=== PATIENT | female | born 1960 | race Caucasian/White ===

== ENCOUNTER 2017-07-07 14:05 | Emergency (ER) | payer BC ==
[~2017-07-07] VITALS: Ht 172.7 cm; Wt 85.8 kg
[2017-07-07 14:13] VITALS: TEMP 36.4; Ht 172.7 cm; Wt 85.8 kg
[2017-07-07] MEDS ORDERED: SODIUM CHLORIDE 0.9% 1000ML 1,000 ML IV STA (14:44)
[2017-07-07] MEDS ORDERED: ONDANSETRON INJ 2 MG/ML 2 ML VIAL IV STA (14:44)
--- NOTE | 2017-07-07 14:47 | EMERGENCY ROOM VISIT NOTE ---
History Report prepared by Anthony: Xavier Lynch Under the Supervision of: Dr. Jag Aparicio M.D. First contact with patient: 14:32 Chief Complaint: ABDOMINAL PAIN Stated Complaint: SEVERE STOMACH PAIN, CHILLS, FLU LIKE VOMIT History of Present Illness The patient is a 57 year old white female with a past medical history of HTN and tubal ligation who presents to the ED with a cc of intermittent abdominal pain beginning this morning. She rates her discomfort as an 8/10 in severity. She describes her current pain as an ache. The patient states that her abdominal pain began in the upper portion of her abdomen on her way to work this morning. She reports that throughout the day her pain became intermittent and worsened. The patient states that her pain has been moving locations during each episode. The patient states that she took Imodium and Tylenol without any relief of symptoms. Positive nausea, chills, contact with someone with cold symptoms. Negative diarrhea, blood in stool, recent travel, recent antibiotic use. Source of History: patient Onset: this morning Position: abdomen Symptom Intensity: 8/10 Quality: ache Timing: intermittent Modifying Factors (Relieving): tylenol, other (Imodium) Associated Symptoms: + chills, + nausea, No melena, No hematochezia, No diarrhea Note: Positive contact with someone with cold symptoms. Negative recent travel, recent antibiotic use. Review of Systems See HPI for pertinent positives and negatives. A total of ten systems were reviewed and were otherwise negative. Past Medical & Surgical Medical Problems: (1) HTN (hypertension) Surgical Problems: (1) H/O tubal ligation (2) Hx of tonsillectomy Family History Diabetes mellitus Heart disease Hypertension Social History Smoking Status: Current Every Day Smoker Alcohol Use: none Drug Use: none Marital Status: Housing Status: lives with significant other Occupation Status: employed Current/Historical Medications Scheduled Dicyclomine Hcl (Bentyl), 10 MG PO TID [Blood Pressure], 1 TAB PO DAILY Scheduled PRN Ondansetron Hcl (Zofran), 4 MG PO Q8H PRN for Nausea Allergies Coded Allergies: Penicillins (Verified Allergy, Unknown, ., 07/07/17) Sulfa Antibiotics (Verified Allergy, Unknown, ., 07/07/17) Physical Exam Vital Signs Date Time Temp Pulse Resp B/P (MAP) Pulse Ox O2 Delivery O2 Flow Rate FiO2 07/07/17 17:53 75 16 139/90 98 07/07/17 16:49 75 16 121/75 98 Room Air 07/07/17 15:46 78 16 119/70 95 Room Air 07/07/17 15:27 84 07/07/17 14:13 36.4 87 18 134/82 99 Room Air Physical Exam GENERAL: Awake, alert, well-appearing, NAD HENT: Normocephalic, atraumatic. EYES: Normal conjunctiva. Sclera non-icteric. NECK: Supple. No nuchal rigidity. FROM. RESPIRATORY: CTAB, no rhonchi, wheezing, crackles CARDIAC: RRR, no MRG ABDOMEN: Soft, NTND, BS+, no suprapubic tenderness, negative psoas, negative obturator's. MSK: No chest wall TTP, no LE edema, no CVA TTP. NEURO: GCS 15, CN 2-12 intact, moves all 4s on command SKIN: No rash or jaundice noted. Medical Decision & Procedures ER Provider Diagnostic Interpretation: X-ray: Per my interpretation, radiologist review. ABDOMEN 2VIEW W/PA CHEST RTN CLINICAL HISTORY: Severe abdominal pain, chills, vomiting. COMPARISON STUDY: No previous studies for comparison. FINDINGS: Erect chest reveals no free intraperitoneal air. There is no focal pelvic consolidation. Erect and supine views the abdomen reveal no abnormally dilated loops of large or small bowel. There are no transition zones to indicate bowel obstruction. IMPRESSION: No evidence of bowel obstruction. No evidence of free air. Electronically signed by: Abram Sun M.D. 07/07/2017 3:54 PM Dictated Date/Time: 07/07/2017 3:54 PM ABDOMEN AND PELVIS CT WITH IV CONTRAST CT DOSE: 467.69 mGy.cm HISTORY: intermittent spasmodic severe abdominal pain, elevated WBC TECHNIQUE: Multiaxial CT images of the abdomen and pelvis were performed following the use of intravenous contrast. A dose lowering technique was utilized adhering to the principles of ALARA. COMPARISON STUDY: Chest and abdominal series 07/07/2017. FINDINGS: A few linear scarlike densities within the right middle lobe and lingula. A 6 mm nodule within the right lower lobe on image 20. No pneumoperitoneum. No pneumatosis. No fractures within the visualized osseous structures. There are probably 5 scattered hypodense lesions within the liver with the largest measuring 5 mm. These are technically too small to characterize but statistically represent cysts. The gallbladder, spleen, adrenal glands, and pancreas are unremarkable. Mild to moderate calcified plaque within the normal caliber abdominal aorta and common iliac arteries. There are few scattered bilateral renal hypodense lesions. The majorities are subcentimeter in size and too small to characterize. Dominant lesion within the upper pole of the left kidney measures 8.7 cm and is consistent with a cyst. There is also a septated 5.4 cm cyst within the upper pole the right kidney. This contains a few small peripheral calcifications. No hydronephrosis. The bladder is unremarkable. The uterus and bilateral adnexa are within normal limits. No pelvic free fluid. No retroperitoneal lymphadenopathy. Colonic diverticulosis. No bowel wall thickening or obstruction. Normal appendix. Nondistended fluid-filled loops of small bowel are seen within the abdomen. IMPRESSION: 1. No bowel wall thickening or obstruction. 2. Normal appendix. 3. Colonic diverticulosis. 4. Nondilated fluid-filled loops of small bowel seen throughout the abdomen. This is likely within the range of normal limits. A low-grade gastroenteritis could also have a similar appearance in the appropriate clinical setting. 5. A 6 mm indeterminate pulmonary nodule within the right lower lobe. Please refer to the chart below for recommended follow-up. 6. Additional findings as described above. Please refer to below summary of Fleischner criteria recommendations for follow-up of incidental CT nodules (Christine Iglesias, Guidelines for management of small pulmonary nodules detected on CT scans: A statement from the Fleischner Society, Radiology 237: [phone].) SOLID NODULES Solitary nodule size: <6 mm * Low risk patients: no follow-up needed * high risk patients: optional CT at 12 months Solitary nodule size: 6-8 mm * Low risk patients: follow-up at 6-12 months, then consider further follow-up at 18-24 months * high risk patients: initial follow-up CT at 6-12 months and then at 18-24 months if no change Solitary nodule size: >8 mm * either low or high risk patients - consider follow-up CT at 3 months, and/or CT-PET, and/or biopsy Multiple nodules size: <6 mm * Low risk patients: no routine follow-up * high risk patients: optional CT at 12 months Multiple nodules size: 6-8 mm * Low risk patients: follow-up at 3-6 months, then consider further follow-up at 18-24 months * high risk patients: follow-up at 3-6 months, then at 18-24 months if no change Multiple nodules size: >8 mm * Low risk patients: follow-up at 3-6 months, then consider further follow-up at 18-24 months * high risk patients: follow-up at 3-6 months, then at 18-24 months if no change Note: newly detected indeterminate nodule in persons 35 years of age or older. * Low risk patients: minimal or absent history of smoking and/or other known risk factors * high risk patients: history of smoking or of other known risk factors (e.g. first degree relative with lung cancer, or exposure to asbestos, radon, uranium) * if a nodule up to 8 mm is partly solid or is ground glass further follow-up is required after 24 months to exclude possible slow growing adenocarcinoma (ANNIKA) SUBSOLID NODULES Solitary pure ground-glass nodule * nodule size <6 mm - no CT follow-up required * nodule size >=6 mm - follow-up CT at 6-12 months, then every 2 years until 5 years Solitary part-solid nodule * nodule size <6 mm - no CT follow-up required * nodule size >=6 mm - follow-up CT at 3-6 months. If unchanged, and solid component remains <6 mm, then annual follow-up for 5 years Multiple subsolid nodules * nodule size <6 mm - follow-up CT at 3-6 months, consider further follow-up at 2 and 4 years if stable * nodule size >=6 mm - follow-up CT at 3-6 months, subsequent management based on the most suspicious nodule(s) Electronically signed by: Javier Soria M.D. 07/07/2017 5:06 PM Dictated Date/Time: 07/07/2017 4:51 PM Laboratory Results 07/07/17 15:10 Red Blood Count 4.85, Mean Corpuscular Volume 92.2, Mean Corpuscular Hemoglobin 32.2, Mean Corpuscular Hemoglobin Concent 34.9, Mean Platelet Volume 9.7, Neutrophils (%) (Auto) 92.7, Lymphocytes (%) (Auto) 2.8, Monocytes (%) (Auto) 4.1, Eosinophils (%) (Auto) 0.1, Basophils (%) (Auto) 0.1, Neutrophils # (Auto) 16.15, Lymphocytes # (Auto) 0.49, Monocytes # (Auto) 0.71, Eosinophils # (Auto) 0.01, Basophils # (Auto) 0.02 07/07/17 15:10 Test 07/07/17 15:10 White Blood Count 17.42 K/uL (4.8-10.8) Red Blood Count 4.85 M/uL (4.2-5.4) Hemoglobin 15.6 g/dL (12.0-16.0) Hematocrit 44.7 % (37-47) Mean Corpuscular Volume 92.2 fL (80-100) Mean Corpuscular Hemoglobin 32.2 pg (25-34) Mean Corpuscular Hemoglobin Concent 34.9 g/dl (32-36) Platelet Count 337 K/uL (130-400) Mean Platelet Volume 9.7 fL (7.4-10.4) Neutrophils (%) (Auto) 92.7 % Lymphocytes (%) (Auto) 2.8 % Monocytes (%) (Auto) 4.1 % Eosinophils (%) (Auto) 0.1 % Basophils (%) (Auto) 0.1 % Neutrophils # (Auto) 16.15 K/uL (1.4-6.5) Lymphocytes # (Auto) 0.49 K/uL (1.2-3.4) Monocytes # (Auto) 0.71 K/uL (0.11-0.59) Eosinophils # (Auto) 0.01 K/uL (0-0.5) Basophils # (Auto) 0.02 K/uL (0-0.2) RDW Standard Deviation 43.2 fL (36.4-46.3) RDW Coefficient of Variation 13.0 % (11.5-14.5) Immature Granulocyte % (Auto) 0.2 % Immature Granulocyte # (Auto) 0.04 K/uL (0.00-0.02) Urine Color YELLOW Urine Appearance CLEAR (CLEAR) Urine pH 5.5 (4.5-7.5) Urine Specific [place] 1.023 (1.000-1.030) Urine Protein NEG (NEG) Urine Glucose (UA) NEG (NEG) Urine Ketones NEG (NEG) Urine Occult Blood 1+ (NEG) Urine Nitrite NEG (NEG) Urine Bilirubin NEG (NEG) Urine Urobilinogen NEG (NEG) Urine Leukocyte Esterase NEG (NEG) Urine WBC (Auto) 1-5 /hpf (0-5) Urine RBC (Auto) 10-30 /hpf (0-4) Urine Hyaline Casts (Auto) 1-5 /lpf (0-5) Urine Epithelial Cells (Auto) 0-5 /lpf (0-5) Urine Bacteria (Auto) NEG (NEG) Anion Gap 7.0 mmol/L (3-11) Est Creatinine Clear Calc Drug Dose 98.9 ml/min Estimated GFR () 107.7 Estimated GFR (Non- 93.0 BUN/Creatinine Ratio 18.5 (10-20) Calcium Level 8.8 mg/dl (8.5-10.1) Total Bilirubin 0.8 mg/dl (0.2-1) Direct Bilirubin 0.1 mg/dl (0-0.2) Aspartate Amino Transf (AST/SGOT) 10 U/L (15-37) Alanine Aminotransferase (ALT/SGPT) 20 U/L (12-78) Alkaline Phosphatase 90 U/L (45-117) Troponin I < 0.015 ng/ml (0-0.045) Total Protein 7.6 gm/dl (6.4-8.2) Albumin 3.9 gm/dl (3.4-5.0) Lipase 130 U/L (73-393) Laboratory results reviewed by me Medications Administered Medications (Trade) Dose Ordered Sig/Gagan Route Start Time Stop Time Status Last Admin Dose Admin Sodium Chloride 1,000 ml @ 999 mls/hr Q1H1M STAT IV 07/07/17 14:44 07/07/17 15:44 DC 07/07/17 15:21 999 MLS/HR Ondansetron HCl (Zofran Inj) 4 mg NOW STAT IV 07/07/17 14:44 07/07/17 14:45 DC 07/07/17 15:21 4 MG Dicyclomine HCl (Bentyl Tab) 20 mg ONE STAT PO 07/07/17 17:13 07/07/17 17:14 DC 07/07/17 17:35 20 MG ECG Per My Interpretation Indication: abdominal pain Rate (beats per minute): 78 Rhythm: normal sinus Findings: T-wave inversion (Single in Lead III), other (Normal intervals, Normal axis, No other STS changes or TWI) Comparison ECG Date: 09/23/10 Change: no significant change ED Course 1436: The patient was evaluated in room C09. A complete history and physical exam was performed. 1600: I reevaluated the patient and she has no acute complaints. 1718: I reevaluated the patient. Discussed results and discharge instructions: She verbalized understanding and agreement. The patient is ready for discharge. Medical Decision Prior records/ancillary studies reviewed. Triage Nursing notes reviewed. The patient is a 57 year old white female with a past medical history of HTN and tubal ligation who presents to the ED with a cc of intermittent abdominal pain beginning this morning. Differential diagnosis: Etiologies such as appendicitis, diverticulitis, PUD, biliary pathology, UTI, pancreatitis, obstruction, mesenteric ischemia, aortic pathology, infections, inflammatory bowel disease, renal colic, as well as others were entertained. Prior records were reviewed. Patient has not been seen in the emergency department for some time. Patient was seen and evaluated the bedside. Patient did complain of some intermittent abdominal pain. Patient states nothing has made it better or worse. Patient states she does get nauseated with a small food. Patient is no elicited discomfort on exam. Patient denies any dysuria or hematuria. Patient also denies any vaginal bleeding or discharge. Patient has no CVA TTP. Patient did have blood work completed, antiemetics, IV fluids, and plain films of the chest and abdomen. Patient's white blood cell count was elevated with a left shift. Patient's other blood work fairly unremarkable. No elevations in LFTs or lipase. Given this and the intermittent nature of her abdominal discomfort a CT of the abdomen pelvis is ordered. Plain films were negative. Patient also did have an EKG as well as a troponin obtained to rule out possible atypical chest pains. Patient's EKG is unchanged from prior nonischemic with a negative troponin. Less likely atypical chest pain or ACS. Patient CT the abdomen pelvis did show some dilated loops of bowel but without any obstruction. A likely enteritis. Patient was told of these findings. Patient was also told that she did have a pulmonary nodule which she states that she knows does have follow-up for in September. Patient was deemed suitable for outpatient follow-up and treatment at this time. Patient told return if she has any worsening symptoms. Patient was given strict follow-up, discharge, and return precautions. All questions were answered. Patient was deemed suitable for outpatient follow-up at this time. Patient agreed with the plan of care and was safely discharged home. Medication Reconcilliation Current Medication List: was personally reviewed by me Blood Pressure Screening Patient's blood pressure: Normal blood pressure Impression Primary Impression: Enteritis Scribe Attestation The scribe's documentation has been prepared under my direction and personally reviewed by me in its entirety. I confirm that the note above accurately reflects all work, treatment, procedures, and medical decision making performed by me. Departure Information Dispostion Home / Self-Care Prescriptions Ondansetron Hcl (ZOFRAN) 4 Mg Tab 4 MG PO Q8H Y for Nausea, #12 TAB Prov: Jag Aparicio M.D. 07/07/17 Dicyclomine Hcl (BENTYL) 10 Mg Cap 10 MG PO TID for 7 Days, #21 CAP Prov: Jag Aparicio M.D. 07/07/17 Referrals Ish Boothe M.D.([facility]) (PCP) Patient Instructions ED Gastroenteritis Viral, My [facility] Additional Instructions Please return to the emergency department if you have worsening or recurrent symptoms not amenable to at-home treatment. Please call for a follow-up appointment with her primary care physician. Please take your medications as prescribed. If you have other concerns and/or complaints please feel free to also call your primary care physician's office or return the ED for further evaluation, management, and treatment. You may take 600 mg Ibuprofen every 6 hours as needed for pain with food for no more than 2 consecutive days. You may take tylenol 1000 mg every 6 hours as needed for pain. You may take motrin and tylenol separately or at the same time. Take your medications as prescribed. Consider a bland diet. Please follow-up with your primary care physician. Hydrate liberally. Consider smaller more frequent meals. Consider avoiding spicy or citrus until you can advance her diet. You have been examined and treated today on an emergency basis only. This is not a substitute for, or an effort to provide, complete comprehensive medical care. It is impossible to recognize and treat all injuries or illnesses in a single emergency department visit. It is therefore important that you follow up closely with [facility], your PCP, and/or your specialist(s). Call as soon as possible for an appointment. Thank you for your time and consideration. I look forward to speaking with you again soon. Please don't hesitate to call us if you have any questions.
[2017-07-07] MEDS ORDERED: BLOOD PRESSURE PO (14:55)
[2017-07-07 15:27] LABS: BASO % 0.1 %; BASO ABS # 0.02 K/uL (0-0.2); EOS % 0.1 %; EOS ABS # 0.01 K/uL (0-0.5); HEMATOCRIT 44.7 % (37-47); HEMOGLOBIN 15.6 g/dL (12.0-16.0); IG# 0.04 K/uL (0.00-0.02); LYMPH % 2.8 %; LYMPH ABS # 0.49 K/uL (1.2-3.4); MEAN CELL VOLUME 92.2 fL (80-100); MEAN CORPUSCULAR HEMOGLOBIN 32.2 pg (25-34); MEAN CORPUSCULAR HGB CONC 34.9 g/dl (32-36); MEAN PLATELET VOLUME 9.7 fL (7.4-10.4); MONO % 4.1 %; MONO ABS # 0.71 K/uL (0.11-0.59); NEUT % 92.7 %; NEUT ABS # 16.15 K/uL (1.4-6.5); PLATELET COUNT 337 K/uL (130-400); RED CELL DISTRIBUTION WIDTH SD 43.2 fL (36.4-46.3); WHITE BLOOD COUNT 17.42 K/uL (4.8-10.8)
[2017-07-07 15:49] LABS: ALBUMIN 3.9 gm/dl (3.4-5.0); ALT/SGPT 20 U/L (12-78); AST/SGOT 10 U/L (15-37); BLOOD UREA NITROGEN 13 mg/dl (7-18); CALCIUM 8.8 mg/dl (8.5-10.1); CARBON DIOXIDE 25 mmol/L (21-32); CREATININE 0.72 mg/dl (0.60-1.20); GLUCOSE 108 mg/dl (70-99); LIPASE 130 U/L (73-393); POTASSIUM 3.6 mmol/L (3.5-5.1); SODIUM 134 mmol/L (136-145)
[2017-07-07] MEDS ORDERED: ALBUT/IPRATROP 3MG/0.5MG NEB 3 ML VIAL INH STA (15:52)
[2017-07-07 15:54] LABS: ALKALINE PHOSPHATASE 90 U/L (45-117); TOTAL PROTEIN 7.6 gm/dl (6.4-8.2)
--- NOTE | 2017-07-07 15:55 | DIAGNOSTIC IMAGING REPORT ---
ABDOMEN 2VIEW W/PA CHEST RTN CLINICAL HISTORY: Severe abdominal pain, chills, vomiting. COMPARISON STUDY: No previous studies for comparison. FINDINGS: Erect chest reveals no free intraperitoneal air. There is no focal pelvic consolidation. Erect and supine views the abdomen reveal no abnormally dilated loops of large or small bowel. There are no transition zones to indicate bowel obstruction. IMPRESSION: No evidence of bowel obstruction. No evidence of free air. Electronically signed by: Abram Sun M.D. 07/07/2017 3:54 PM Dictated Date/Time: 07/07/2017 3:54 PM
[2017-07-07] MEDS ORDERED: OPTIRAY 320 IV PRN (16:00)
--- NOTE | 2017-07-07 17:07 | DIAGNOSTIC IMAGING REPORT ---
ABDOMEN AND PELVIS CT WITH IV CONTRAST CT DOSE: 467.69 mGy.cm HISTORY: intermittent spasmodic severe abdominal pain, elevated WBC TECHNIQUE: Multiaxial CT images of the abdomen and pelvis were performed following the use of intravenous contrast. A dose lowering technique was utilized adhering to the principles of ALARA. COMPARISON STUDY: Chest and abdominal series 07/07/2017. FINDINGS: A few linear scarlike densities within the right middle lobe and lingula. A 6 mm nodule within the right lower lobe on image 20. No pneumoperitoneum. No pneumatosis. No fractures within the visualized osseous structures. There are probably 5 scattered hypodense lesions within the liver with the largest measuring 5 mm. These are technically too small to characterize but statistically represent cysts. The gallbladder, spleen, adrenal glands, and pancreas are unremarkable. Mild to moderate calcified plaque within the normal caliber abdominal aorta and common iliac arteries. There are few scattered bilateral renal hypodense lesions. The majorities are subcentimeter in size and too small to characterize. Dominant lesion within the upper pole of the left kidney measures 8.7 cm and is consistent with a cyst. There is also a septated 5.4 cm cyst within the upper pole the right kidney. This contains a few small peripheral calcifications. No hydronephrosis. The bladder is unremarkable. The uterus and bilateral adnexa are within normal limits. No pelvic free fluid. No retroperitoneal lymphadenopathy. Colonic diverticulosis. No bowel wall thickening or obstruction. Normal appendix. Nondistended fluid-filled loops of small bowel are seen within the abdomen. IMPRESSION: 1. No bowel wall thickening or obstruction. 2. Normal appendix. 3. Colonic diverticulosis. 4. Nondilated fluid-filled loops of small bowel seen throughout the abdomen. This is likely within the range of normal limits. A low-grade gastroenteritis could also have a similar appearance in the appropriate clinical setting. 5. A 6 mm indeterminate pulmonary nodule within the right lower lobe. Please refer to the chart below for recommended follow-up. 6. Additional findings as described above. Please refer to below summary of Fleischner criteria recommendations for follow-up of incidental CT nodules (Christine Iglesias, Guidelines for management of small pulmonary nodules detected on CT scans: A statement from the Fleischner Society, Radiology 237: [phone].) SOLID NODULES Solitary nodule size: <6 mm * Low risk patients: no follow-up needed * high risk patients: optional CT at 12 months Solitary nodule size: 6-8 mm * Low risk patients: follow-up at 6-12 months, then consider further follow-up at 18-24 months * high risk patients: initial follow-up CT at 6-12 months and then at 18-24 months if no change Solitary nodule size: >8 mm * either low or high risk patients - consider follow-up CT at 3 months, and/or CT-PET, and/or biopsy Multiple nodules size: <6 mm * Low risk patients: no routine follow-up * high risk patients: optional CT at 12 months Multiple nodules size: 6-8 mm * Low risk patients: follow-up at 3-6 months, then consider further follow-up at 18-24 months * high risk patients: follow-up at 3-6 months, then at 18-24 months if no change Multiple nodules size: >8 mm * Low risk patients: follow-up at 3-6 months, then consider further follow-up at 18-24 months * high risk patients: follow-up at 3-6 months, then at 18-24 months if no change Note: newly detected indeterminate nodule in persons 35 years of age or older. * Low risk patients: minimal or absent history of smoking and/or other known risk factors * high risk patients: history of smoking or of other known risk factors (e.g. first degree relative with lung cancer, or exposure to asbestos, radon, uranium) * if a nodule up to 8 mm is partly solid or is ground glass further follow-up is required after 24 months to exclude possible slow growing adenocarcinoma (ANNIKA) SUBSOLID NODULES Solitary pure ground-glass nodule * nodule size <6 mm - no CT follow-up required * nodule size >=6 mm - follow-up CT at 6-12 months, then every 2 years until 5 years Solitary part-solid nodule * nodule size <6 mm - no CT follow-up required * nodule size >=6 mm - follow-up CT at 3-6 months. If unchanged, and solid component remains <6 mm, then annual follow-up for 5 years Multiple subsolid nodules * nodule size <6 mm - follow-up CT at 3-6 months, consider further follow-up at 2 and 4 years if stable * nodule size >=6 mm - follow-up CT at 3-6 months, subsequent management based on the most suspicious nodule(s) Electronically signed by: Javier Soria M.D. 07/07/2017 5:06 PM Dictated Date/Time: 07/07/2017 4:51 PM
[2017-07-07] MEDS ORDERED: DICYCLOMINE HCL 20 MG TAB PO STA (17:13)
[2017-07-07] MEDS ORDERED: DICY10CA55 PO (17:35)
[2017-07-07] MEDS ORDERED: ONDA4TAB46 PO (17:35)
[2017-07-07 17:53] VITALS: BP 139/90; PULSE 75; O2SAT 98
== END 2017-07-07 17:53 | disposition home or self-care (01) ==
LOC: C.EDB 14:08 → C.EDC 17:53
DX: K52.9 Noninfective gastroenteritis and colitis, unspecified (principal); I10 Essential (primary) hypertension; Z83.3 Family history of diabetes mellitus; Z82.49 Family history of ischemic heart disease and other diseases of the circulatory system; F17.200 Nicotine dependence, unspecified, uncomplicated; Z88.0 Allergy status to penicillin; Z88.1 Allergy status to other antibiotic agents